=== PATIENT | male | born 1940 | race Caucasian/White ===

== ENCOUNTER 2018-11-15 05:13 | Emergency (ER) | payer OTHER, SELFPAY ==
--- NOTE | 2018-11-15 05:18 | ED.MALEGU ---
HPI - Male Genitourinary General Chief complaint: Urogenital-Male Stated complaint: urinary retention Time Seen by Provider: 11/15/18 05:17 Source: patient Mode of arrival: EMS Limitations: no limitations History of Present Illness HPI Narrative: 77-year-old [place]. Patient states that he has had 2 prior episodes of retention in the past however has never needed a Youssef catheter. Initially he stated that he has a history of prostatitis however when further questioning he stated that it was that his prostate was enlarged and not infected. He has seen Urology in the past. He stated that all of his prior episodes of urinary retention have resolved on their own he stated that his last episode of urination was last evening before bed. Woke up in the middle the night to go to the bathroom however could not. Started having abdominal pain. [place] was no Youssef on the eyelid to be placed. Was sent here by air evacuation. Received fentanyl prior to arrival. Review of Systems Constitutional Denies fatigue Gastrointestinal Gastrointestinal: Reports abdominal pain Genitourinary Comments: Urinary retention Endocrine Denies fatigue Hematologic/Lymphatic Denies easy bleeding and Denies easy bruising PFSH Medical History Enlarged prostate (Acute) Social History Smoking Status: Never smoker Social History Smoking Status: Never smoker Exam Initial Vital Signs Initial Vital Signs: Vital Signs Temperature 97.6 F 11/15/18 05:31 Pulse Rate 70 11/15/18 05:31 Respiratory Rate 18 11/15/18 05:31 Blood Pressure 121/62 11/15/18 05:31 Pulse Oximetry 99 11/15/18 05:31 Const General: cooperative, healthy appearing, comfortable, well developed and well groomed Orientation: alert, awake and oriented x3 Resp Effort & Inspection: normal respiratory effort Cardio Rate: regular rate Penis: normal penis Skin Lesions: no lesions Rashes: no rashes Neuro General: alert, awake and oriented x3 Extrem General: normal to inspection and capillary refill normal Course Orders Ordered: ED Orders 11/15/18 05:40 UA Complete [Urinalysis and Microscopic] Stat Vital Signs - 8 hr 11/15/18 05:31 11/15/18 06:17 Temperature 97.6 F Pulse Rate 70 76 Respiratory Rate 18 20 Blood Pressure 121/62 Blood Pressure [Left Arm] 112/60 Pulse Oximetry 99 98 MDM - Male Genitourinary Lab Data Lab Results 11/15/18 Range/Units 05:40 Urine Color Yellow Urine Appearance Clear Urine pH 6.5 (4.5-8.0) Ur Specific [place] 1.010 (1.000-1.035) Urine Protein Negative (Negative) Urine Glucose (UA) Negative (Negative) g/dL Urine Ketones Negative (NEGATIVE) Urine Occult Blood 2+ H (Negative) Urine Nitrate Negative (Negative) Urine Bilirubin Negative (NEGATIVE) Urine Urobilinogen 0.2 (0.2) E.U./dL Ur Leukocyte Esterase Negative (NEGATIVE) Urine RBC 1-5/hpf (0-5/HPF) Urine WBC None seen (0-5/HPF) Urine Bacteria None seen (None) Ur Culture Indicated? Cult not indicated MDM Narrative Medical decision making narrative: no signs of urinary tract infection. Youssef catheter is placed with return of approximately 1 L of urine. No indication for antibiotics. Patient was given care instructions with regard to his Youssef. He was instructed to contact his primary doctor for follow-up and to discuss the indications for referral to see Urology. Patient expressed understanding and agreement with plan. Discharge Plan Departure Patient Disposition: Home Clinical Impression: Acute retention of urine Instructions: How to Care for Your Youssef Catheter -- Male, DI for Urinary Retention in Men Activity Restrictions/Additional Instructions: I recommend that you contact your primary care doctor today for a follow-up to have Your Youssef catheter removed. Also recommend that you discussed the indications for referral to see Urology. return to the emergency department for any new or worsening symptoms Referrals: Ignacio Gomez MD [Primary Care Provider] -
[2018-11-15 05:31] VITALS: BP 121/62; PULSE 70; RESP 18; TEMP 36.4; O2SAT 99
[2018-11-15 06:06] LABS: Bacteria Urine None Seen; WBC Urine None Seen (0-5/HPF)
[2018-11-15 06:07] LABS: Appearance Urine UA CLEAR; Bilirubin Urine UA NEGATIVE (NEGATIVE); Color Urine UA YELLOW; Glucose Urine UA NEGATIVE (Negative); Ketones Urine UA NEGATIVE (NEGATIVE); Leukocyte Esterase Urine UA NEGATIVE (NEGATIVE); Nitrite Urine UA NEGATIVE (Negative); Occult Blood Urine UA 2+ (Negative); Protein Urine UA NEGATIVE (Negative); Urobilinogen Urine UA 0.2 E.U./dL (0.2); pH Urine UA 6.5 (4.5-8.0)
[2018-11-15 06:17] VITALS: BP 112/60; PULSE 76; RESP 20; O2SAT 98
[2018-11-15 06:25] LABS: Culture Indicated Urine Cult Not Indicated; RBC Urine 1-5/HPF (0-5/HPF)
--- NOTE | 2018-11-15 06:52 | PC.NURSE ---
HIs gibson bag was converted to leg bag,he verbalized understanding of care for it.I emptied 950 ml urine from his gibson.
== END 2018-11-15 06:52 | disposition home or self-care (01) ==
PROVIDERS: Emergency Provider Emergency Medicine; PCP Family Medicine
DX: R33.8 Other retention of urine (principal)
CPT/HCPCS: 51701; 81001; 99283

== ENCOUNTER 2019-05-10 19:00 | Emergency (ER) | payer OTHER, SELFPAY ==
[2019-05-10 19:29] VITALS: BP 182/85; PULSE 83; RESP 18; TEMP 36.9; O2SAT 97; BMI 23.3
--- NOTE | 2019-05-10 19:52 | ED_ITS ---
HPI - General Adult General Chief complaint: Abdominal Pain Stated complaint: LOTS OF PRESSURE NOT PEEING MUCH Time Seen by Provider: 05/10/19 19:44 Source: patient Mode of arrival: ambulatory Limitations: no limitations History of Present Illness HPI narrative: 78-year-old male here for evaluation of urinary frequency, urgency and lower abdominal discomfort. He states that it has been going on for the past several days. He has had history of urinary retention in the past and has had to have a Youssef catheter. He is under the care of her urologist. Is currently on medications for BPH. He denies any fevers. Related Data Previous Rx's Medication Instructions Recorded phenazopyridine [Pyridium] 100 mg PO TID PRN #6 tab 05/10/19 Allergies Allergy/AdvReac Type Severity Reaction Status Date / Time No Known Drug Allergies Allergy Verified 05/10/19 19:29 Review of Systems Constitutional Constitutional: Denies fever(s) ENT Ears, Nose, Mouth, and Throat: Denies vertigo and Denies dizziness Cardiovascular Cardiovascular: Denies chest pain and Denies dyspnea Respiratory Respiratory: Denies dyspnea Gastrointestinal Gastrointestinal: Reports abdominal pain, Reports constipation and Denies diarrhea Genitourinary Genitourinary: Denies hematuria, Reports difficulty urinating, Denies flank pa in, Reports urinary frequency, Reports urinary hesitancy, Denies urinary incontinence and Reports urinary urgency Musculoskeletal Musculoskeletal: Denies myalgias and Denies arthralgias Integumentary/Breasts Skin/Breast: Denies lesions and Denies rash Neurologic Neurologic: Denies vertigo and Denies dizziness Hematologic/Lymphatic Hematologic/Lymphatic: Denies easy bleeding and Denies easy bruising Allergic/Immunologic Allergic/Immunologic: Denies urticaria [facility] Medical History Enlarged prostate (Acute) Social History Smoking Status: Never smoker Social History Smoking Status: Never smoker Exam Initial Vital Signs Initial Vital Signs: Vital Signs Temperature 98.5 F 05/10/19 19:29 Pulse Rate 83 05/10/19 19:29 Respiratory Rate 18 05/10/19 19:29 Blood Pressure 182/85 H 05/10/19 19:29 Pulse Oximetry 97 05/10/19 19:29 Const General: cooperative, healthy appearing, comfortable, well developed, well groomed and No acute distress Orientation: alert, awake and oriented x3 HENMT Head: normal to inspection and normocephalic Resp Effort & Inspection: normal respiratory effort Auscultation: clear to auscultation bilaterally Cardio Rate: regular rate Rhythm: regular rhythm GI Inspection: non-distended Palpation: No firm and No tender Rectal Exam: normal sphincter tone, No fecal impaction and No hemorrhoids Other: Patient with a large prostate however not tender to palpation Skin Lesions: no lesions Rashes: no rashes Neuro General: alert and awake Cognition: normal cognition Speech: speech normal Extrem General: normal to inspection and capillary refill normal Psych Appearance: grossly normal and well kempt Course Orders Ordered: ED Orders 05/10/19 19:40 Urinalysis and Microscopic Stat Discontinued Medications Phenazopyridine HCl (Pyridium) 100 mg PO NOW ONE Stop: 05/10/19 21:02 Last Admin: 05/10/19 21:12 Dose: 100 mg Documented by: DEJAN Vital Signs Vital signs: Vital Signs - 8 hr 05/10/19 19:29 05/10/19 21:17 Temperature 98.5 F Pulse Rate 83 88 Respiratory Rate 18 18 Blood Pressure 182/85 H Blood Pressure [Left Arm] 160/78 H Pulse Oximetry 97 98 Medical Decision Making Lab Data Lab results reviewed: Yes I reviewed the patient's lab results. Labs: Lab Results 05/10/19 Range/Units 19:40 Urine Color Yellow Urine Appearance Clear Urine pH 5.5 (4.5-8.0) Ur Specific [place] 1.010 (1.000-1.035) Urine Protein Negative (Negative) Urine Glucose (UA) Negative (Negative) g/dL Urine Ketones Negative (NEGATIVE) Urine Occult Blood Negative (Negative) Urine Nitrate Negative (Negative) Urine Bilirubin Negative (NEGATIVE) Urine Urobilinogen 1.0 (0.2) E.U./dL Ur Leukocyte Esterase Negative (NEGATIVE) Urine RBC None seen (0-5/HPF) Urine WBC 0-1/hpf (0-5/HPF) Ur Squamous Epith Cells 0-1 /hpf (0-5/HPF) Urine Bacteria None seen (None) Ur Culture Indicated? Cult not indicated MDM Narrative Medical decision making narrative: Patient's urinalysis shows no signs of a UTI. He had a bladder scan with 40 cc of urine so I have low concern for urinary retention. He does have a very large prostate however does not tender to palpation and not boggy so I have a low suspicion for prostatitis. He does have symptoms consistent with a urinary tract infection however. No fevers. He does have a urologist that he follows. Will send him home with Pyridium to see if this does not help with his bladder spasms. Will hold on any antibiotics for now. Patient was given return precautions and follow-up instructions. He expressed understanding and agreement plan. Discharge Plan Departure Patient Disposition: Home Clinical Impression: Dysuria Discharge Date/Time: 05/10/19 21:30 Instructions: DI for Dysuria -- Adult Activity Restrictions/Additional Instructions: Recommend you take all of your medications as directed. On Monday if you're still having symptoms please contact your urologist for a follow-up. Return to the emergency department for any new symptoms Prescriptions: New phenazopyridine [Pyridium] 100 mg tablet 100 mg PO TID PRN (Reason: pain) Qty: 6 RF: 0 Referrals: Ignacio Gomez MD [Primary Care Provider] -
[2019-05-10 20:04] LABS: Bacteria Urine None Seen; RBC Urine None Seen (0-5/HPF)
[2019-05-10 20:10] LABS: Appearance Urine UA CLEAR; Bilirubin Urine UA NEGATIVE (NEGATIVE); Color Urine UA YELLOW; Glucose Urine UA NEGATIVE (Negative); Ketones Urine UA NEGATIVE (NEGATIVE); Leukocyte Esterase Urine UA NEGATIVE (NEGATIVE); Nitrite Urine UA NEGATIVE (Negative); Occult Blood Urine UA NEGATIVE (Negative); Protein Urine UA NEGATIVE (Negative); pH Urine UA 5.5 (4.5-8.0)
[2019-05-10 20:23] LABS: Culture Indicated Urine Cult Not Indicated; Squamous Epithelial Cell Urine 0-1 /HPF (0-5/HPF); WBC Urine 0-1/HPF (0-5/HPF)
[2019-05-10] MEDS: PHENAZOPYRIDINE 100 MG TABLET PO (21:12)
[2019-05-10 21:17] VITALS: BP 160/78; PULSE 88; RESP 18; O2SAT 98
== END 2019-05-10 21:30 | disposition home or self-care (01) ==
PROVIDERS: Emergency Provider Emergency Medicine; PCP Family Medicine
DX: R30.0 Dysuria (principal)
CPT/HCPCS: 51798; 81001; 99283

== ENCOUNTER 2019-08-16 10:00 | Day surgery (SDC) | payer OTHER, SELFPAY ==
--- NOTE | 2019-08-16 | PATH_ITS ---
[facility] Accession Number: [id number] . 01 Material submitted: . colon - CECAL POLYP . 02 Diagnosis: Cecum, Polyp, Biopsy: Tubular adenoma. MRV 08/19/2019 1007 Local . 02 Electronically signed: . Brianne Dalal MD, Pathologist NPI- [id number] . 01 Gross description: . CECAL POLYP: Received in formalin are 2 fragment(s) of lai, soft tissue measuring 0.3 x 0.2 x 0.2 cm to 0.5 x 0.4 x 0.3 cm submitted entirely in 1 cassette(s) /[facility] [place] 08/17/2019 0029 Local . 02 Pathologist provided ICD-10: D12.0 . 02 CPT . 756356 Performed at: 01 [facility] [address] [id number] MD Clinton Islas MD Phone: [phone] Performed at: 02 [facility] [address] [place], [place] [id number] MD Brianne Dalal MD Phone: [phone]
[2019-08-16] MEDS: SODIUM CHLORIDE 0.9% 1,000 ML 200 ML IV (10:31)
[2019-08-16 10:34] VITALS: BP 152/86; PULSE 98; RESP 20; TEMP 36.4; O2SAT 98; BMI 25.0
--- NOTE | 2019-08-16 10:42 | PM.HP.1 ---
History of Present Illness History of Present Illness Date Patient Seen: 08/16/19 Time Patient Seen: 10:43 Chief complaint: [id number] Narrative: This is a 78-year-old man who has never had a screening colonoscopy. He has had stool test before and never had 1 term positive. He has had worsening constipation recently and this has driven him to seek a colonoscopy. He denies any melena or hematochezia. ROS: Patient reports significant BPH with episodes of urine retention, chronic back pain, constipation, urinary frequency and urgency. Thirteen system review is otherwise negative other than as mentioned below and in HPI. PE: GENERAL: Well groomed and cooperative. Appears stated age. Answers questions promptly and appropriately. Vital signs noted. HENT: Normocephalic, atraumatic. Hearing intact. Oral mucosa is pink and moist. EYES: Conjunctiva pink, sclera white, no periorbital swelling. CARDIOVASCULAR: Regular rate. No pedal edema. RESPIRATORY: Non-tachypneic, breathing comfortably on room air. GASTROINTESTINAL: Abdomen soft and non-distended GENITALURINARY: No flank tenderness. MUSCULOSKELETAL: Equal tone and mass bilaterally. SKIN: Warm, dry, soft, appropriate color for ethnicity. No other lesions, rashes, or wounds. NEURO: Alert and Oriented X 3. No gross sensory deficits, or cognitive issues. PSYCH: Appropriate affect and mood. Patient History Medical History Enlarged prostate (Acute) Family & Social History Social History: household members spouse Tobacco & Substance use: Smoking Status Never smoker alcohol intake frequency a few times a month Substance Use Type marijuana Meds Home Medications and Allergies Home Medications Medication Instructions Recorded Confirmed Type phenazopyridine [Pyridium] 100 mg PO TID PRN #6 tab 05/10/19 Rx allopurinol 300 mg PO DAILY 08/16/19 08/16/19 History diazepam 5 mg PO BEDTIME PRN 08/16/19 08/16/19 History ibuprofen 400 mg PO Q8H PRN 08/16/19 08/16/19 History losartan 100 mg PO DAILY 08/16/19 08/16/19 History terazosin 10 mg PO DAILY 08/16/19 08/16/19 History Allergies Allergy/AdvReac Type Severity Reaction Status Date / Time shellfish derived Allergy Verified 08/16/19 10:39 Exam Vital Signs (past 8 hours): - 08/16/19 10:34 Temperature 97.5 F L Pulse Rate 98 H Respiratory Rate 20 Blood Pressure 152/86 H Pulse Oximetry 98 Oxygen Delivery Method Room Air Assessment & Plan Assessment and plan (1) At average risk for colon cancer: Current visit: Yes Status: Acute (2) Colon cancer screening: Current visit: Yes Status: Acute (3) Constipation: Current visit: Yes Status: Acute (4) BPH (benign prostatic hyperplasia): Current visit: Yes Status: Acute Assessment & Plan narrative: This is a 78-year-old man who is here for his 1st screening colonoscopy. Risks and benefits of colonoscopy including bleeding, perforation, need for additional procedures, risks of anesthesia were discussed with the patient. He desires to proceed with his colonoscopy procedure. Time Spent With Patient Time with patient: 15-24 minutes Quality VTE Deep Vein Thrombosis/Pulmonary Embolism Present on Admission: No
[2019-08-16] MEDS: fentaNYL 250 MCG/5 ML INJ IV (11:17)
--- NOTE | 2019-08-16 11:17 | PM.OP.ENDO ---
Operative Date/Time/Diagnoses Date of procedure: 08/16/19 Time of procedure: 11:17 Pre-op diagnosis: Average risk for colon cancer, constipation Post-op diagnosis: other (1cm cecal polyp ) Procedure & Clinicians Study performed: colonoscopy with polypectomy using hot snare Same procedure as scheduled: Yes Indications: average risk for colon cancer, never had screening colonoscopy Surgeon: Kera Turner Procedure Notes SCOAP/Timeout: Performed Procedure in detail: The patient was brought to the room and placed in left lateral decubitus position with all bony prominences padded. A time-out was performed and then the patient was given procedural sedation starting with [4] mg of Versed and [100] mcg of fentanyl. A total of 6 mg of Versed and 250 micro rooms of fentanyl were used for the procedure. Vitals were monitored throughout the procedure and remained stable. Once adequately sedated the procedure was begun. A rectal exam was performed revealing a large prostate. The colonoscope was then introduced to the rectum and advanced to the cecum in the usual fashion. []The cecum was identified by the appendiceal orifice, the mucosal tri-fold, and the ileocecal valve. A 1 cm polyp was found in the cecum. It was completely removed with hot snare. The scope was then retracted while rotating side to side and examining each mucosal fold. [No further abnormalities were seen.] At the conclusion of the procedure retroflexion was performed and [small grade 1-2 internal hemorrhoids without stigmata of bleeding were seen, as well as an enlarged prostate]. The scope was then withdrawn from the rectum the procedure was concluded. The patient tolerated the procedure well and was transferred to the PACU in stable condition. Scope withdrawal time: 17 Sedation minutes: 29 Findings: polyp Specimen(s): other (1 cm cecal polyp) Complications: none Impression: 1 cm cecal polyp, large prostate, otherwise normal Post-procedure Recommendations: Colonscopy in 5 years (Depending on pathology results) Follow up: as needed Disposition: PACU
[2019-08-16] MEDS: MIDAZOLAM 5 MG/5 ML VIAL IV (11:18)
[2019-08-16 11:21] VITALS: BP 130/64; PULSE 61; RESP 17; O2SAT 98
[2019-08-16] MEDS: MIDAZOLAM 2 MG/2 ML VIAL IV (11:22)
[2019-08-16 11:27] VITALS: BP 121/69; PULSE 58; RESP 14; TEMP 36.3; O2SAT 98
[2019-08-16 11:31] VITALS: BP 134/75; PULSE 63; RESP 14; O2SAT 97
[2019-08-16 11:45] VITALS: BP 136/71; PULSE 62; RESP 20; TEMP 36.9; O2SAT 98
== END 2019-08-16 11:55 | disposition home or self-care (01) ==
PROVIDERS: PCP Family Medicine; Visit Provider Surgery
PROC: 0DJD8ZZ Inspection of Lower Intestinal Tract, Via Natural or Artificial Opening Endoscopic (ICD-10-PCS; CPT 45378; principal; 2019-08-16 10:00)
DX: D12.0 Benign neoplasm of cecum (principal); N40.1 Benign prostatic hyperplasia with lower urinary tract symptoms; R33.8 Other retention of urine; R35.0 Frequency of micturition; R39.15 Urgency of urination; M54.5 Low back pain
CPT/HCPCS: 45380; 99152; 99153; J2250; J3010

== ENCOUNTER → 2021-04-01 10:39 | Outpatient (CLI) | payer BC, SELFPAY ==
[2021-04-01 19:37] LABS: Add Manual Diff / Slide Review NO; Basophils Absolute Auto 0 /uL (0-100); Basophils Percent Auto 0.5 % (0-2); Eosinophils Absolute Auto 100 /uL (0-450); Hematocrit 42.1 % (41-53); Hemoglobin 14.2 g/dL (13.5-17.5); Lymphocytes Absolute Auto 2000 /uL (1100-4500); Mean Corpuscular HGB Conc 33.6 % (30-36); Mean Corpuscular Hemoglobin 32.5 PG (26-34); Mean Corpuscular Volume 96.6 fL (80-100); Monocytes Absolute Auto 400 /uL (0-900); Monocytes Percent Auto 7.6 % (3-14); Neutrophils Absolute Auto 3300 /uL (1500-7000); Neutrophils Percent Auto 56.9 % (50-75); Platelet Count 156 X10^3/uL (150-400); Red Blood Cell Count 4.36 X10^6/uL (4.5-5.9); Red Cell Distribution Width 14.9 % (11.6-14.8); White Blood Cell Count 5.8 X10^3/uL (4.5-11.0)
[2021-04-01 19:54] LABS: Alanine Aminotransferase 20 IU/L (<50); Albumin 3.6 g/dL (3.5-5.0); Albumin Globulin Ratio 1.3 (1.0-2.8); Alkaline Phosphatase 69 U/L (38-126); Aspartate Aminotransferase 29 IU/L (17-59); BUN Creatinine Ratio 20.3 (6-22); Blood Urea Nitrogen 27 mg/dL (9-20); Carbon Dioxide 27 mmol/L (22-32); Chloride 106 mmol/L (98-107); Cholesterol 199 mg/dL (140-199); Globulin 2.8 g/dL (1.7-4.1); Glucose 98 mg/dL (80-110); HDL Cholesterol 57 mg/dL (40-60); HEMOLYSIS < 15 (0-50); LDL Cholesterol Calculated 126 mg/dL (<100); Potassium 4.8 mmol/L (3.4-5.1); Sodium 137 mmol/L (137-145); Total Protein 6.4 g/dL (6.3-8.2); Triglycerides 79 mg/dL (35-150)
[2021-04-01 20:16] LABS: Prostate Specific Antigen 0.727 ng/mL (0.10-4.00)
== END ==
PROVIDERS: PCP Physician Assistant; Visit Provider Family Medicine
DX: I10 Essential (primary) hypertension (principal); N40.0 Benign prostatic hyperplasia without lower urinary tract symptoms
CPT/HCPCS: 80053; 80061; 84153; 85025

== ENCOUNTER 2021-08-09 14:00 | Emergency (ER) | payer BC, MEDICARE, SELFPAY ==
[2021-08-09] VITALS (19 sets, daily range): BP systolic 150–217; BP diastolic 67–96; PULSE 57–121; RESP 18–38; TEMP 36.9–37.7; O2SAT 91–98
--- NOTE | 2021-08-09 14:21 | DI.RAD.S_ITS ---
PROCEDURE: XR CHEST 1V INDICATIONS: suspected sepsis TECHNIQUE: One view of the chest was acquired. COMPARISON: None. FINDINGS: Surgical changes and devices: None. Lungs and pleura: Right lower lung zone density, which may reflect atelectasis and/or pneumonic infiltrate. The left lung is well aerated. No pneumothorax. Mediastinum: Mediastinal contours appear normal. Heart size is normal. Bones and chest wall: No suspicious bony lesions. Overlying soft tissues appear unremarkable. IMPRESSION: Right lower lung zone density, which may reflect atelectasis and/or pneumonic infiltrate. Dictated by: Everette Astorga M.D. on 08/09/2021 at 15:14 Approved by: Everette Astorga M.D. on 08/09/2021 at 15:15
[2021-08-09 14:55] LABS: Add Manual Diff / Slide Review NO; Basophils Absolute Auto 0 /uL (0-100); Basophils Percent Auto 0.4 % (0-2); Eosinophils Absolute Auto 0 /uL (0-450); Eosinophils Percent Auto 0.6 % (2-4); Hematocrit 40.6 % (41-53); Hemoglobin 13.7 g/dL (13.5-17.5); Lymphocytes Absolute Auto 900 /uL (1100-4500); Lymphocytes Percent Auto 10.5 % (25-40); Mean Corpuscular HGB Conc 33.8 % (30-36); Mean Corpuscular Hemoglobin 32.2 PG (26-34); Mean Corpuscular Volume 95.4 fL (80-100); Monocytes Absolute Auto 900 /uL (0-900); Monocytes Percent Auto 10.4 % (3-14); Neutrophils Absolute Auto 6800 /uL (1500-7000); Neutrophils Percent Auto 78.1 % (50-75); Platelet Count 170 X10^3/uL (150-400); Red Blood Cell Count 4.26 X10^6/uL (4.5-5.9); Red Cell Distribution Width 14.1 % (11.6-14.8); White Blood Cell Count 8.7 X10^3/uL (4.5-11.0)
[2021-08-09 15:16] LABS: Lactate (Lactic Acid) 1.4 mmol/L (0.7-2.1)
--- NOTE | 2021-08-09 15:16 | ED.GENADULT ---
HPI - General Adult <Martell Batista DO - Last Filed: 08/10/21 07:00> General Chief complaint: Fever Stated complaint: Feve, SOB, Lower left back pain Time Seen by Provider: 08/09/21 14:23 Source: patient Mode of arrival: Ambulatory History of Present Illness HPI narrative: Patient is a 80-year-old male here for evaluation approximately 3 days of a fever and right lower back discomfort. He states that the fever started 3 days ago. He is unsure the exact cause. Has been taking some medication at home for it. No cough. No urinary symptoms. No change in bowel habits. No skin changes. No sore throat although he is having some congestion. No problems breathing. Approximately the same time he started having pain in his right lower back. He states that this pain does seem to come and go. Does not get worse with touching it but does get worse with position. He has never had a kidney stone before. Related Data Home Medications Medication Instructions Recorded Confirmed ibuprofen 200 mg tablet 400 mg PO Q8H PRN 08/16/19 04/06/21 allopurinol 300 mg tablet 300 mg PO DAILY 03/30/21 04/06/21 Previous Rx's Medication Instructions Recorded diazepam 5 mg tablet (Valium) See Rx Instructions PO BEDTIME PRN 04/06/21 #10 tab losartan 100 mg tablet 100 mg PO DAILY #90 tab 04/21/21 clonidine HCl 0.1 mg tablet See Rx Instructions .ROUTE 07/13/21 .COMPLEX #45 tab azithromycin 250 mg tablet 250 mg PO DAILY 4 Days tab 08/09/21 (Zithromax) Allergies Allergy/AdvReac Type Severity Reaction Status Date / Time shellfish derived Allergy Verified 04/06/21 14:04 Review of Systems <Martell Batista DO - Last Filed: 08/10/21 07:00> Constitutional Constitutional: Reports fever(s) and Denies headache(s) ENT Ears, Nose, Mouth, and Throat: Denies headache(s) Cardiovascular Cardiovascular: Reports system reviewed and no additional complaints, except as documented Respiratory Respiratory: Reports system reviewed and no additional complaints, except as documented Gastrointestinal Gastrointestinal: Reports system reviewed and no additional complaints, except as documented Genitourinary Genitourinary: Reports system reviewed and no additional complaints, except as documented Musculoskeletal Musculoskeletal: Reports as per HPI Integumentary/Breasts Skin/Breast: Reports system reviewed and no additional complaints, except as documented Neurologic Neurologic: Reports system reviewed and no additional complaints, except as documented and Denies headache(s) Hematologic/Lymphatic On Anticoagulants: No Allergic/Immunologic Allergic/Immunologic: Reports system reviewed and no additional complaints, except as documented Patient History <Martell Batista DO - Last Filed: 08/10/21 07:00> Medical History (Updated 08/09/21 @ 20:07 by Ignacio Ba MD) Enlarged prostate Social History household members: spouse Smoking Status: Never smoker Smoking Status: Never smoker alcohol intake frequency: a few times a month Substance Use Type: marijuana Exam <Martell Batista DO - Last Filed: 08/10/21 07:00> Initial Vital Signs Initial Vital Signs: Vital Signs Temperature 98.4 F 08/09/21 14:13 Pulse Rate 121 H 08/09/21 14:13 Respiratory Rate 18 08/09/21 14:13 Blood Pressure 217/96 H 08/09/21 14:13 Pulse Oximetry 98 08/09/21 14:13 Const General: cooperative, comfortable and well developed Limitations: mental status not altered HENMT Head: normal to inspection and normocephalic Resp Effort & Inspection: normal respiratory effort Auscultation: clear to auscultation bilaterally Cardio Rate: regular rate Rhythm: regular rhythm GI Inspection: normal to inspection and non-distended Palpation: soft and No tender Back/Spine/Pelvis Other: Patient does have some fullness in his right paraspinal regions lower back. He has 3 distinct areas of fullness that feel very much like lipomas. No overlying skin changes. Is to seem to be the area where he is having discomfort. Skin Lesions: no lesions Rashes: no rashes Neuro General: patient alert, patient awake, patient oriented x3 and moves all extremities Cognition: normal cognition Speech: speech normal Extrem General: normal to inspection and capillary refill normal Psych Appearance: grossly normal and well kempt <Ignacio Ba MD - Last Filed: 08/10/21 01:33> Initial Vital Signs Initial Vital Signs: Vital Signs Temperature 98.4 F 08/09/21 14:13 Pulse Rate 121 H 08/09/21 14:13 Respiratory Rate 18 08/09/21 14:13 Blood Pressure 217/96 H 08/09/21 14:13 Pulse Oximetry 98 08/09/21 14:13 Course <Martell Batista DO - Last Filed: 08/10/21 07:00> Orders Ordered: Discontinued Medications Diphenhydramine HCl (Diphenhydramine 50 Mg/Ml Vial) 25 mg IV NOW ONE Stop: 08/09/21 16:16 Last Admin: 08/09/21 16:21 Dose: 25 mg Documented by: JEFERSON Sodium Chloride (Normal Saline 0.9%) 1,000 mls @ 1,000 mls/hr IV BOLUS ONE Stop: 08/09/21 15:20 Last Infusion: 08/09/21 19:17 Dose: 0 mls/hr Documented by: Admin: 08/09/21 15:48 Dose: 1,000 mls/hr Documented by: JEFERSON Azithromycin 500 mg/ Dextrose 250 mls @ 250 mls/hr IV NOW ONE Stop: 08/09/21 17:21 Last Infusion: 08/09/21 19:27 Dose: 0 mls/hr Documented by: Infusion: 08/09/21 18:00 Dose: 250 mls/hr Documented by: Infusion: 08/09/21 17:44 Dose: 0 mls/hr Documented by: Admin: 08/09/21 17:44 Dose: 250 mls/hr Documented by: JEFERSON Ibuprofen (Ibuprofen 400 Mg Tablet) 800 mg PO NOW ONE Stop: 08/09/21 15:44 Last Admin: 08/09/21 15:48 Dose: 800 mg Documented by: JEFERSON Methylprednisolone (Methylprednisolone 125 Mg/2 Ml Vial) 125 mg IV NOW ONE Stop: 08/09/21 16:16 Last Admin: 08/09/21 16:21 Dose: 125 mg Documented by: JEFERSON Vital Signs Vital signs: Vital Signs - 8 hr 08/09/21 18:00 08/09/21 18:30 08/09/21 19:00 Pulse Rate 57 L 66 71 Respiratory Rate 24 38 H 27 H Blood Pressure Pulse Oximetry 96 96 95 08/09/21 19:02 08/09/21 19:30 08/09/21 20:00 Pulse Rate 62 59 L 60 Respiratory Rate 21 21 18 Blood Pressure 156/70 H 151/67 H 163/74 H Pulse Oximetry 95 96 95 <Ignacio Ba MD - Last Filed: 08/10/21 01:33> Course Course Narrative: 7:[address] Batista, MRI pending likely hemangioma. Stable for discharge home. Had Zithromax 1st dose here. Needs continuation antibiotics for the next 4 days with Zithromax. Orders Ordered: Discontinued Medications Diphenhydramine HCl (Diphenhydramine 50 Mg/Ml Vial) 25 mg IV NOW ONE Stop: 08/09/21 16:16 Last Admin: 08/09/21 16:21 Dose: 25 mg Documented by: JEFERSON Sodium Chloride (Normal Saline 0.9%) 1,000 mls @ 1,000 mls/hr IV BOLUS ONE Stop: 08/09/21 15:20 Last Infusion: 08/09/21 19:17 Dose: 0 mls/hr Documented by: Admin: 08/09/21 15:48 Dose: 1,000 mls/hr Documented by: JEFERSON Azithromycin 500 mg/ Dextrose 250 mls @ 250 mls/hr IV NOW ONE Stop: 08/09/21 17:21 Last Infusion: 08/09/21 19:27 Dose: 0 mls/hr Documented by: Infusion: 08/09/21 18:00 Dose: 250 mls/hr Documented by: Infusion: 08/09/21 17:44 Dose: 0 mls/hr Documented by: Admin: 08/09/21 17:44 Dose: 250 mls/hr Documented by: JEFERSON Ibuprofen (Ibuprofen 400 Mg Tablet) 800 mg PO NOW ONE Stop: 08/09/21 15:44 Last Admin: 08/09/21 15:48 Dose: 800 mg Documented by: JEFERSON Methylprednisolone (Methylprednisolone 125 Mg/2 Ml Vial) 125 mg IV NOW ONE Stop: 08/09/21 16:16 Last Admin: 08/09/21 16:21 Dose: 125 mg Documented by: JEFERSON Reevaluation(s) Reevaluation #1: Spoke with patient and family regarding MRI results. Blood pressure has improved. Patient not toxic. Reviewed MRI likely hemangioma and needs follow-up with primary care. They agree with treatment plan Time: 20:05 Vital Signs Vital signs: Vital Signs - 8 hr 08/09/21 18:00 08/09/21 18:30 08/09/21 19:00 Pulse Rate 57 L 66 71 Respiratory Rate 24 38 H 27 H Blood Pressure Pulse Oximetry 96 96 95 08/09/21 19:02 08/09/21 19:30 08/09/21 20:00 Pulse Rate 62 59 L 60 Respiratory Rate 21 21 18 Blood Pressure 156/70 H 151/67 H 163/74 H Pulse Oximetry 95 96 95 Medical Decision Making <Martell BatistaDO - Last Filed: 08/10/21 07:00> Medical Records Medical records reviewed: Yes I reviewed the patient's medical records. Lab Data Lab results reviewed: Yes I reviewed the patient's lab results. Result diagrams: 08/09/21 14:48 08/09/21 14:48 Labs: Lab Results 08/09/21 08/09/21 08/09/21 Range/Units 14:24 14:48 14:48 WBC 8.7 (4.5-11.0) X10^3/uL RBC 4.26 L (4.5-5.9) X10^6/uL Hgb 13.7 (13.5-17.5) g/dL Hct 40.6 L (41-53) % MCV 95.4 (80-100) fL MCH 32.2 (26-34) PG MCHC 33.8 (30-36) % RDW 14.1 (11.6-14.8) % Plt Count 170 (150-400) X10^3/uL Neut % (Auto) 78.1 H (50-75) % Lymph % (Auto) 10.5 L (25-40) % [place] % (Auto) 10.4 (3-14) % Eos % (Auto) 0.6 L (2-4) % Baso % (Auto) 0.4 (0-2) % Neut # (Auto) 6800 (5268-1889) /uL Lymph # (Auto) 900 L (3766-8967) /uL [place] # (Auto) 900 (0-900) /uL Eos # (Auto) 0 (0-450) /uL Baso # (Auto) 0 (0-100) /uL Sodium 141 (137-145) mmol/L Potassium 4.3 (3.4-5.1) mmol/L Chloride 107 (98-107) mmol/L Carbon Dioxide 26 (22-32) mmol/L BUN 21 H (9-20) mg/dL Creatinine 1.22 (0.66-1.25) mg/dL Estimated GFR 57.4 L (>60) mL/min BUN/Creatinine Ratio 17.2 (6-22) Glucose 112 H (80-110) mg/dL Lactate (0.7-2.1) mmol/L Calcium 11.6 H (8.4-10.2) mg/dL Total Bilirubin 1.5 H (0.2-1.3) mg/dL AST 57 (17-59) IU/L ALT 62 H (<50) IU/L Alkaline Phosphatase 118 (38-126) U/L Total Protein 7.5 (6.3-8.2) g/dL Albumin 4.0 (3.5-5.0) g/dL Globulin 3.5 (1.7-4.1) g/dL Albumin/Globulin Ratio 1.1 (1.0-2.8) Lipase 47 (23-300) U/L Procalcitonin 0.20 (<0.5) ng/mL SARS-CoV-2 (PCR) Negative (Negative) 08/09/21 Range/Units 14:48 WBC (4.5-11.0) X10^3/uL RBC (4.5-5.9) X10^6/uL Hgb (13.5-17.5) g/dL Hct (41-53) % MCV (80-100) fL MCH (26-34) PG MCHC (30-36) % RDW (11.6-14.8) % Plt Count (150-400) X10^3/uL Neut % (Auto) (50-75) % Lymph % (Auto) (25-40) % [place] % (Auto) (3-14) % Eos % (Auto) (2-4) % Baso % (Auto) (0-2) % Neut # (Auto) (4963-8679) /uL Lymph # (Auto) (8785-2819) /uL [place] # (Auto) (0-900) /uL Eos # (Auto) (0-450) /uL Baso # (Auto) (0-100) /uL Sodium (137-145) mmol/L Potassium (3.4-5.1) mmol/L Chloride (98-107) mmol/L Carbon Dioxide (22-32) mmol/L BUN (9-20) mg/dL Creatinine (0.66-1.25) mg/dL Estimated GFR (>60) mL/min BUN/Creatinine Ratio (6-22) Glucose (80-110) mg/dL Lactate 1.4 (0.7-2.1) mmol/L Calcium (8.4-10.2) mg/dL Total Bilirubin (0.2-1.3) mg/dL AST (17-59) IU/L ALT (<50) IU/L Alkaline Phosphatase (38-126) U/L Total Protein (6.3-8.2) g/dL Albumin (3.5-5.0) g/dL Globulin (1.7-4.1) g/dL Albumin/Globulin Ratio (1.0-2.8) Lipase (23-300) U/L Procalcitonin (<0.5) ng/mL SARS-CoV-2 (PCR) (Negative) Urine Dip Bedside Urine Glucose Negative Bedside Urine Bilirubin - Negative Bedside Urine Ketone - Negative Urine Specific [place] 1.015 Bedside Urine Occult Blood - Negative Bedside Urine pH 6.0 Bedside Urine Protein + 30 Bedside Urine Urobilinogen - Negative Bedside Urine Nitrite - Negative Bedside Urine Leukocytes - Negative Esterase Point of care testing: Urine Dip Bedside Urine Glucose Negative Bedside Urine Bilirubin - Negative Bedside Urine Ketone - Negative Urine Specific [place] 1.015 Bedside Urine Occult Blood - Negative Bedside Urine pH 6.0 Bedside Urine Protein + 30 Bedside Urine Urobilinogen - Negative Bedside Urine Nitrite - Negative Bedside Urine Leukocytes - Negative Esterase Imaging Data Chest x-ray: Radiologist's Impression: Close Chest X-Ray (Signed) Everette Astorga - 08/09/21 Telemetry Strips 08/16/19 Launch?[address] [address] XRay Report Signed Patient: Chauncey Martinez MR#: [id number] : 1940 Acct:[id number] Age/Sex: 80 / M Date of Service: 08/09/21 Loc: ED Accession Number: [id number] ?? Procedure: XR chest 1V Ordering Provider: Martell Batista D.O. PROCEDURE:? XR CHEST 1V ? INDICATIONS:? suspected sepsis ? TECHNIQUE:? One view of the chest was acquired.? ? COMPARISON:? None. ? FINDINGS:? ? Surgical changes and devices:? None.? ? Lungs and pleura:? Right lower lung zone density, which may reflect atelectasis and/or pneumonic infiltrate.? The left lung is well aerated.? No pneumothorax.? ? Mediastinum:? Mediastinal contours appear normal.? Heart size is normal.? ? Bones and chest wall:? No suspicious bony lesions.? Overlying soft tissues appear unremarkable.? ? IMPRESSION:? Right lower lung zone density, which may reflect atelectasis and/or pneumonic infiltrate.? ? ? Dictated by: Everette Astorga M.D. on 08/09/2021 at 15:14 ? ? Approved by: Everette Astorga M.D. on 08/09/2021 at 15:15?? CT scan - abdomen/pelvis: Radiologist's Impression: [place] [address] CT Scan Report Signed Patient: Chauncey Martinez MR#: [id number] : 1940 Acct:[id number] Age/Sex: 80 / M Date of Service: 08/09/21 Loc: ED Accession Number: [id number] ?? Procedure: CT abdomen pelvis w con Ordering Provider: Martell Batista D.O. PROCEDURE:? CT ABDOMEN PELVIS W CON ? INDICATIONS:? Right-sided flank pain with fever and leukocytosis ? TECHNIQUE:? After the administration of IV contrast, axial sections were acquired from the lung bases to the pubic symphysis.? Coronal and sagittal reformats were performed.? For radiation dose reduction, the following was used:? automated exposure control, adjustment of mA and/or kV according to patient size. ? COMPARISON:? None. ? FINDINGS:? Image quality:? Excellent.? ? Lung bases:? There is a small right pleural effusion.? There are confluent ground-glass opacities with mild consolidation inferiorly in the right lower lobe.? Linear areas of atelectasis are also demonstrated in the lung bases.? ? Heart:? Heart is normal in size. ? ? ABDOMEN: Liver:? Anteriorly within segment 2 of the left hepatic lobe, there is a peripherally enhancing lobulated mass measuring approximately 4.9 x 4.3 cm.? There is das discontinuous nodular peripheral enhancement.? Posteriorly within segment 7 of the right hepatic lobe, there is also an oval heterogeneous hypoattenuating mass lesion measuring approximately 2.7 x 2.5 cm with heterogeneous internal enhancement with areas of peripheral nodularity also noted.? The findings are suggestive of cavernous hemangiomas but are incompletely characterized on the current study. Gallbladder:? Within normal limits without gallstones.? ? Biliary ducts:? No biliary ductal dilatation.? ? Pancreas:? Unremarkable.? ? Spleen:? Normal in size.? ? Adrenal Glands:? No adrenal nodules.? ? Kidneys and Ureters:? No hydronephrosis.? There is asymmetric moderate atrophy of the right kidney.? A small nonobstructing 0.2 cm stone is present within the right kidney.? ? Stomach and Bowel:? Stomach, small bowel loops, and colon are normal in caliber and wall thickness.? The appendix is normal in appearance.? Peritoneum:? No abnormal intraperitoneal fluid.? No free air.? ? Ventral Wall: ? No hernia.? Abdominal Nodes:? No retroperitoneal or mesenteric adenopathy by size criteria.? Vessels:? Aorta and inferior vena cava are normal in size.? ? PELVIS: Pelvic Organs:? Unremarkable.? ? Bladder:? Unremarkable.? ? Pelvic Nodes: No enlarged lymph nodes.? Miscellaneous: No inguinal hernias are seen. ? ? ? Bones:? Visualized osseous structures demonstrate no suspicious focal lesions. ? ? IMPRESSION:? ? 1. Confluent ground-glass opacities with consolidation inferiorly in the right lower lobe consistent with pneumonia.? There is an associated small right parapneumonic effusion.? Consider short-term follow-up to demonstrate resolution if clinically indicated. ? 2. Demonstration of 2 hepatic mass lesions with imaging findings suggestive of cavernous hemangiomas but which are incompletely characterized on the current study.? The differential includes neoplasms as well as possible fluid collections such as abscesses.? Recommend a follow-up liver protocol MRI or CT for further evaluation. ? 3. Right nephrolithiasis without obstructive uropathy.? ? ? Dictated by: Clinton Brady M.D. on 08/09/2021 at 16:44 ? ? Approved by: Clinton Brady M.D. on 08/09/2021 at 16:52?? ECG Data Attestation: I personally reviewed and interpreted this ECG as follows: Interpretation: Sinus rhythm Ventricular rate 95 LVH Normal axis Normal QRS Normal QTC Nonspecific ST T wave changes MDM Narrative Medical decision making narrative: Patient was febrile however no leukocytosis. Chest x-ray does have some concerning findings for pneumonia however he has not had a cough. The discomfort he is having does seem to be somewhat lower than what I would expect for his right lower lung to be causing his back discomfort. The mass is in his back feel very much like lipomas. There is no signs of any cellulitis. The back discomfort and also the fever started approximately the same time. His CT scan was ordered for concern of potential deeper infection given his presentation. There is no signs of pyelonephritis. Low suspicion for gallstones. The CT scan as even more findings consistent with pneumonia which very well could be causing his symptoms however there were also findings in his liver that are most likely hemangiomas but there was also concern about abscesses. An MRI liver protocol was ordered for further evaluation of this. He was given a dose of azithromycin to start treatment for pneumonia. Anticipate discharge home if his MRI is unremarkable. Care turned over to Dr. Ba head changes shift to follow-up on MRI and anticipated disposition. <Ignacio Ba MD - Last Filed: 08/10/21 01:33> Differential Diagnosis Differential Diagnosis: Hemangioma/community-acquired pneumonia Lab Data Labs: Lab Results 08/09/21 08/09/21 08/09/21 Range/Units 14:24 14:48 14:48 WBC 8.7 (4.5-11.0) X10^3/uL RBC 4.26 L (4.5-5.9) X10^6/uL Hgb 13.7 (13.5-17.5) g/dL Hct 40.6 L (41-53) % MCV 95.4 (80-100) fL MCH 32.2 (26-34) PG MCHC 33.8 (30-36) % RDW 14.1 (11.6-14.8) % Plt Count 170 (150-400) X10^3/uL Neut % (Auto) 78.1 H (50-75) % Lymph % (Auto) 10.5 L (25-40) % [place] % (Auto) 10.4 (3-14) % Eos % (Auto) 0.6 L (2-4) % Baso % (Auto) 0.4 (0-2) % Neut # (Auto) 6800 (9447-7221) /uL Lymph # (Auto) 900 L (7701-6478) /uL [place] # (Auto) 900 (0-900) /uL Eos # (Auto) 0 (0-450) /uL Baso # (Auto) 0 (0-100) /uL Sodium 141 (137-145) mmol/L Potassium 4.3 (3.4-5.1) mmol/L Chloride 107 (98-107) mmol/L Carbon Dioxide 26 (22-32) mmol/L BUN 21 H (9-20) mg/dL Creatinine 1.22 (0.66-1.25) mg/dL Estimated GFR 57.4 L (>60) mL/min BUN/Creatinine Ratio 17.2 (6-22) Glucose 112 H (80-110) mg/dL Lactate (0.7-2.1) mmol/L Calcium 11.6 H (8.4-10.2) mg/dL Total Bilirubin 1.5 H (0.2-1.3) mg/dL AST 57 (17-59) IU/L ALT 62 H (<50) IU/L Alkaline Phosphatase 118 (38-126) U/L Total Protein 7.5 (6.3-8.2) g/dL Albumin 4.0 (3.5-5.0) g/dL Globulin 3.5 (1.7-4.1) g/dL Albumin/Globulin Ratio 1.1 (1.0-2.8) Lipase 47 (23-300) U/L Procalcitonin 0.20 (<0.5) ng/mL SARS-CoV-2 (PCR) Negative (Negative) 08/09/21 Range/Units 14:48 WBC (4.5-11.0) X10^3/uL RBC (4.5-5.9) X10^6/uL Hgb (13.5-17.5) g/dL Hct (41-53) % MCV (80-100) fL MCH (26-34) PG MCHC (30-36) % RDW (11.6-14.8) % Plt Count (150-400) X10^3/uL Neut % (Auto) (50-75) % Lymph % (Auto) (25-40) % [place] % (Auto) (3-14) % Eos % (Auto) (2-4) % Baso % (Auto) (0-2) % Neut # (Auto) (7405-5171) /uL Lymph # (Auto) (4519-3348) /uL [place] # (Auto) (0-900) /uL Eos # (Auto) (0-450) /uL Baso # (Auto) (0-100) /uL Sodium (137-145) mmol/L Potassium (3.4-5.1) mmol/L Chloride (98-107) mmol/L Carbon Dioxide (22-32) mmol/L BUN (9-20) mg/dL Creatinine (0.66-1.25) mg/dL Estimated GFR (>60) mL/min BUN/Creatinine Ratio (6-22) Glucose (80-110) mg/dL Lactate 1.4 (0.7-2.1) mmol/L Calcium (8.4-10.2) mg/dL Total Bilirubin (0.2-1.3) mg/dL AST (17-59) IU/L ALT (<50) IU/L Alkaline Phosphatase (38-126) U/L Total Protein (6.3-8.2) g/dL Albumin (3.5-5.0) g/dL Globulin (1.7-4.1) g/dL Albumin/Globulin Ratio (1.0-2.8) Lipase (23-300) U/L Procalcitonin (<0.5) ng/mL SARS-CoV-2 (PCR) (Negative) Urine Dip Bedside Urine Glucose Negative Bedside Urine Bilirubin - Negative Bedside Urine Ketone - Negative Urine Specific [place] 1.015 Bedside Urine Occult Blood - Negative Bedside Urine pH 6.0 Bedside Urine Protein + 30 Bedside Urine Urobilinogen - Negative Bedside Urine Nitrite - Negative Bedside Urine Leukocytes - Negative Esterase Point of care testing: Urine Dip Bedside Urine Glucose Negative Bedside Urine Bilirubin - Negative Bedside Urine Ketone - Negative Urine Specific [place] 1.015 Bedside Urine Occult Blood - Negative Bedside Urine pH 6.0 Bedside Urine Protein + 30 Bedside Urine Urobilinogen - Negative Bedside Urine Nitrite - Negative Bedside Urine Leukocytes - Negative Esterase Imaging Data MRI abdomen: Radiologist's Impression: [address] [address] Magnetic Resonance Report Signed Patient: Chauncey Martinez MR#: [id number] : 1940 Acct:[id number] Age/Sex: 80 / M Date of Service: 08/09/21 Loc: ED Accession Number: [id number] ?? Procedure: MR abdomen wo/w con Ordering Provider: Martell Batista D.O. PROCEDURE:? MR ABDOMEN WO/W CON ? INDICATIONS:? would like liver protocol MRI to evaluate for abscesses ? TECHNIQUE:? Coronal HASTE, axial 2D FLASH in- and [id number]; axial breath-hold T2 FSE.? Dynamic axial VIBE during the administration of contrast; post-contrast coronal VIBE or 2D FLASH with fat saturation from the hepatic dome to the iliac crests.? Optional diffusion weighted imaging and ADC may be performed.? ? COMPARISON:? [facility], CT, CT ABDOMEN PELVIS W CON, 08/09/2021, 16:38. ? FINDINGS:? Image quality:? Some images are degraded by motion artifact.? ? Lung bases:? Small right pleural effusion.? Heart size is normal.? ? Solid organs:? Liver:? Redemonstrated masses in segment 2, measuring approximately 5.5 x 3.5 cm, and segment 7, measuring 2.5 x 2.5 cm , which demonstrate peripheral nodular enhancement and exhibit restricted diffusion. ? Gallbladder demonstrates no acute abnormality.? Biliary system is non dilated.? ? Pancreas is normal in morphology.? ? Spleen is normal in size and enhancement.? ? No adrenal nodules.? ? The kidneys demonstrate symmetric enhancement without hydronephrosis.? The right kidney is atrophic.? Parapelvic T2 hyperintense lesions in the left kidney, likely representing cysts. ? Nodes and vessels:? No retroperitoneal or mesenteric adenopathy by size criteria.? Aorta and inferior vena cava are normal in size.? ? Bowel and peritoneum:? Unenhanced bowel loops are normal in caliber.? No free fluid.? ? Bones:? Bone marrow is normal in overall signal.? ? ? IMPRESSION:? 1. Redemonstrated hepatic masses as detailed above, favored to represent hemangiomas.? Consider short-term CT liver protocol or sonographic follow-up to ensure stability. ? ? ? Dictated by: Everette Astorga M.D. on 08/09/2021 at 19:24 ? ? Approved by: Everette sAtorga M.D. on 08/09/2021 at 19:35 ? Discharge Plan Departure Patient Disposition: Home Clinical Impression: Community acquired pneumonia Activity Restrictions/Additional Instructions: See family doctor this week for recheck. Continue antibiotic tomorrow. Return if worsening questions or concerns or increased pain or any trouble breathing. Prescriptions: New azithromycin [Zithromax] 250 mg tablet 250 mg PO DAILY 4 Days 0RF Rx Instructions: start on day 2 of therapy No Action losartan 100 mg tablet 100 mg PO DAILY Qty: 90 1RF clonidine HCl 0.1 mg tablet See Rx Instructions .ROUTE .COMPLEX Qty: 45 2RF Rx Instructions: 0.5 tablet QAM and 1 Tablet QPM ibuprofen 200 mg Tablet 400 mg PO Q8H PRN (Reason: Pain (Scale Score 1-3)) 0RF diazepam [Valium] 5 mg tablet See Rx Instructions PO BEDTIME PRN (Reason: temporary insomnia/travel) Qty: 10 0RF Rx Instructions: Take 1 to 2 tabs PO only if needed at bedtime PRN; allopurinol 300 mg tablet 300 mg PO DAILY 0RF Referrals: Nury Lainez PA-C [Primary Care Provider] -
[2021-08-09 15:19] LABS: Alanine Aminotransferase 62 IU/L (<50); Albumin Globulin Ratio 1.1 (1.0-2.8); Alkaline Phosphatase 118 U/L (38-126); Aspartate Aminotransferase 57 IU/L (17-59); BUN Creatinine Ratio 17.2 (6-22); Bilirubin Total 1.5 mg/dL (0.2-1.3); Blood Urea Nitrogen 21 mg/dL (9-20); Calcium 11.6 mg/dL (8.4-10.2); Carbon Dioxide 26 mmol/L (22-32); Chloride 107 mmol/L (98-107); Estimated Glomerular Filt Rate 57.4 mL/min (>60); Globulin 3.5 g/dL (1.7-4.1); Glucose 112 mg/dL (80-110); HEMOLYSIS 15 (0-50); Lipase 47 U/L (23-300); Potassium 4.3 mmol/L (3.4-5.1); Sodium 141 mmol/L (137-145); Total Protein 7.5 g/dL (6.3-8.2)
[2021-08-09 15:26] LABS: COVID19 - ADMIT (NP swab/PCR) Negative (Negative)
[2021-08-09] MEDS: SODIUM CHLORIDE 0.9% 1,000 ML 1000 ML IV (15:48)
[2021-08-09] MEDS: IBUPROFEN 400 MG TABLET 800 MG PO (15:48)
--- NOTE | 2021-08-09 16:03 | DI.CT.S_ITS ---
PROCEDURE: CT ABDOMEN PELVIS W CON INDICATIONS: Right-sided flank pain with fever and leukocytosis TECHNIQUE: After the administration of IV contrast, axial sections were acquired from the lung bases to the pubic symphysis. Coronal and sagittal reformats were performed. For radiation dose reduction, the following was used: automated exposure control, adjustment of mA and/or kV according to patient size. COMPARISON: None. FINDINGS: Image quality: Excellent. Lung bases: There is a small right pleural effusion. There are confluent ground-glass opacities with mild consolidation inferiorly in the right lower lobe. Linear areas of atelectasis are also demonstrated in the lung bases. Heart: Heart is normal in size. ABDOMEN: Liver: Anteriorly within segment 2 of the left hepatic lobe, there is a peripherally enhancing lobulated mass measuring approximately 4.9 x 4.3 cm. There is das discontinuous nodular peripheral enhancement. Posteriorly within segment 7 of the right hepatic lobe, there is also an oval heterogeneous hypoattenuating mass lesion measuring approximately 2.7 x 2.5 cm with heterogeneous internal enhancement with areas of peripheral nodularity also noted. The findings are suggestive of cavernous hemangiomas but are incompletely characterized on the current study. Gallbladder: Within normal limits without gallstones. Biliary ducts: No biliary ductal dilatation. Pancreas: Unremarkable. Spleen: Normal in size. Adrenal Glands: No adrenal nodules. Kidneys and Ureters: No hydronephrosis. There is asymmetric moderate atrophy of the right kidney. A small nonobstructing 0.2 cm stone is present within the right kidney. Stomach and Bowel: Stomach, small bowel loops, and colon are normal in caliber and wall thickness. The appendix is normal in appearance. Peritoneum: No abnormal intraperitoneal fluid. No free air. Ventral Wall: No hernia. Abdominal Nodes: No retroperitoneal or mesenteric adenopathy by size criteria. Vessels: Aorta and inferior vena cava are normal in size. PELVIS: Pelvic Organs: Unremarkable. Bladder: Unremarkable. Pelvic Nodes: No enlarged lymph nodes. Miscellaneous: No inguinal hernias are seen. Bones: Visualized osseous structures demonstrate no suspicious focal lesions. IMPRESSION: 1. Confluent ground-glass opacities with consolidation inferiorly in the right lower lobe consistent with pneumonia. There is an associated small right parapneumonic effusion. Consider short-term follow-up to demonstrate resolution if clinically indicated. 2. Demonstration of 2 hepatic mass lesions with imaging findings suggestive of cavernous hemangiomas but which are incompletely characterized on the current study. The differential includes neoplasms as well as possible fluid collections such as abscesses. Recommend a follow-up liver protocol MRI or CT for further evaluation. 3. Right nephrolithiasis without obstructive uropathy. Dictated by: Clinton Brady M.D. on 08/09/2021 at 16:44 Approved by: Clinton Brady M.D. on 08/09/2021 at 16:52
[2021-08-09] MEDS: diphenhydrAMINE 50 MG/ML VIAL 25 MG IV (16:21)
[2021-08-09] MEDS: methylPREDNISolone 125 MG/2 ML VIAL IV (16:21)
--- NOTE | 2021-08-09 17:08 | DI.MRI.S_ITS ---
PROCEDURE: MR ABDOMEN WO/W CON INDICATIONS: would like liver protocol MRI to evaluate for abscesses TECHNIQUE: Coronal HASTE, axial 2D FLASH in- and [id number]; axial breath-hold T2 FSE. Dynamic axial VIBE during the administration of contrast; post-contrast coronal VIBE or 2D FLASH with fat saturation from the hepatic dome to the iliac crests. Optional diffusion weighted imaging and ADC may be performed. COMPARISON: [facility], CT, CT ABDOMEN PELVIS W CON, 08/09/2021, 16:38. FINDINGS: Image quality: Some images are degraded by motion artifact. Lung bases: Small right pleural effusion. Heart size is normal. Solid organs: Liver: Redemonstrated masses in segment 2, measuring approximately 5.5 x 3.5 cm, and segment 7, measuring 2.5 x 2.5 cm , which demonstrate peripheral nodular enhancement and exhibit restricted diffusion. Gallbladder demonstrates no acute abnormality. Biliary system is non dilated. Pancreas is normal in morphology. Spleen is normal in size and enhancement. No adrenal nodules. The kidneys demonstrate symmetric enhancement without hydronephrosis. The right kidney is atrophic. Parapelvic T2 hyperintense lesions in the left kidney, likely representing cysts. Nodes and vessels: No retroperitoneal or mesenteric adenopathy by size criteria. Aorta and inferior vena cava are normal in size. Bowel and peritoneum: Unenhanced bowel loops are normal in caliber. No free fluid. Bones: Bone marrow is normal in overall signal. IMPRESSION: 1. Redemonstrated hepatic masses as detailed above, favored to represent hemangiomas. Consider short-term CT liver protocol or sonographic follow-up to ensure stability. Dictated by: Everette Astorga M.D. on 08/09/2021 at 19:24 Approved by: Everette Astorga M.D. on 08/09/2021 at 19:35
[2021-08-09] MEDS: AZITHROMYCIN 500 MG in DEXTROSE 5% IN WATER 250 ML IV (17:44)
== END 2021-08-09 20:11 | disposition home or self-care (01) ==
PROVIDERS: Emergency Medicine; Emergency Provider Emergency Medicine; PCP Physician Assistant
DX: J18.9 Pneumonia, unspecified organism (principal); M54.50 Low back pain, unspecified; R03.0 Elevated blood-pressure reading, without diagnosis of hypertension; Z20.822 Contact with and (suspected) exposure to COVID-19
CPT/HCPCS: 36415; 71045; 74177; 74183; 80053; 81003; 83605; 83690; 84145; 85025; 87040; 87635; 93005; 93010; 96361; 96365; 96375; 99284; 99285; C9803; A9579; J1200; J2930; Q9967

== ENCOUNTER 2022-01-23 21:02 | Emergency (ER) | payer BC, SELFPAY ==
[2022-01-23] VITALS (15 sets, daily range): BP systolic 130–201; BP diastolic 69–87; PULSE 32–60; RESP 15–24; TEMP 37; O2SAT 96–99
--- NOTE | 2022-01-23 21:08 | DI.RAD.S_ITS ---
PROCEDURE: XR CHEST 1V INDICATIONS: chest pain TECHNIQUE: One view of the chest was acquired. COMPARISON: [facility], CR, XR CHEST 1V, 08/09/2021, 14:56. FINDINGS: Surgical changes and devices: None. Lungs and pleura: Lungs are clear. No pleural effusions or pneumothorax. Mediastinum: Mediastinal contours appear normal. Heart size is normal. Bones and chest wall: No suspicious bony lesions. Overlying soft tissues appear unremarkable. IMPRESSION: No acute cardiopulmonary findings Approved by: Michael Caludio M.D. on 01/23/2022 at 21:02
--- NOTE | 2022-01-23 21:34 | ED.CHESTPAIN ---
HPI - Chest Pain General Chief Complaint: Chest Pain Stated Complaint: Lt arm/chest pain, high BP Time Seen by Provider: 01/23/22 21:25 Source: patient Mode of arrival: Ambulatory Limitations: no limitations History of Present Illness HPI narrative: 81-year-old male with a history of high blood pressure who is here for evaluation of left-sided chest discomfort and left arm discomfort. He states that a couple hours prior to arrival here in the emergency department he was at a libertarian with some friends. He had a fairly sudden onset of left-sided chest discomfort that did seem to involve his left arm. Potentially worse with movement of the area but is not 100% convinced of this. He describes it as a dull sensation. No problems breathing. No palpitations. No vomiting. No skin changes. No fevers. He has never had symptoms like this in the past. Did take his blood pressure which was elevated. He contacted the doctor on-call where he lives who advised that he come in to be evaluated. He contacted EMS. They arrived and evaluated him. He was told that it was probably musculoskeletal but advised that he come to the emergency department. He was given an aspirin. He did take a dose of his clonidine. Upon arrival he states that his symptoms have improved but are not completely resolved. Related Data Home Medications Medication Instructions Recorded Confirmed ibuprofen 200 mg tablet 400 mg PO Q8H PRN 08/16/19 09/07/21 Previous Rx's Medication Instructions Recorded losartan 100 mg tablet 100 mg PO DAILY #90 tab 04/21/21 acetazolamide 125 mg tablet 125 mg PO BID #30 tab 09/07/21 diazepam 5 mg tablet (Valium) See Rx Instructions PO BEDTIME PRN 09/07/21 #10 tab clonidine HCl 0.1 mg tablet See Rx Instructions .ROUTE 11/26/21 .COMPLEX #45 tab Allergies Allergy/AdvReac Type Severity Reaction Status Date / Time shellfish derived Allergy Verified 09/07/21 11:49 Review of Systems Constitutional Constitutional: Denies fever(s) and Denies headache(s) ENT Ears, Nose, Mouth, and Throat: Denies headache(s) Cardiovascular Cardiovascular: Reports system reviewed and no additional complaints, except as documented Respiratory Respiratory: Reports system reviewed and no additional complaints, except as documented Gastrointestinal Gastrointestinal: Reports system reviewed and no additional complaints, except as documented Musculoskeletal Musculoskeletal: Reports system reviewed and no additional complaints, except as documented Integumentary/Breasts Skin/Breast: Reports system reviewed and no additional complaints, except as documented Neurologic Neurologic: Denies headache(s) Hematologic/Lymphatic On Anticoagulants: No Patient History Medical History Anxiety disorder Enlarged prostate Hypertension Liver mass Nephrolithiasis Neuropathy of both feet Social History household members: spouse Smoking Status: Never smoker Smoking Status: Never smoker alcohol intake frequency: a few times a month Substance Use Type: marijuana Exam Initial Vital Signs Initial Vital Signs: Vital Signs Pulse Rate 59 L 01/23/22 21:07 Blood Pressure 201/87 H 01/23/22 21:07 Pulse Oximetry 99 01/23/22 21:07 Const General: cooperative and healthy appearing HENMT Head: normal to inspection Resp Effort & Inspection: normal respiratory effort Auscultation: clear to auscultation bilaterally Cardio Rate: regular rate Rhythm: regular rhythm GI Inspection: normal to inspection Skin General: no rashes or lesions noted Neuro General: patient alert, patient awake and moves all extremities Cognition: normal cognition Speech: speech normal Extrem General: normal to inspection, full ROM and No edema Psych Appearance: grossly normal and well kempt Scores HEART Score Heart Score history: Slightly Suspicious Heart Score EKG: Normal Heart Score Age: > or = 65 years old Heart Score risk factors: 1-2 risk factors Heart Score troponin: < or = to normal limit Heart Score Total: 3 Course Orders Ordered: ED Orders 01/23/22 21:08 XR chest 1V Stat EKG-12 Lead Stat 01/23/22 21:22 Complete Blood Count AUTO DIFF Stat Comprehensive Metabolic Panel Stat Lipase Stat Magnesium Stat Troponin & CK Cardiac Panel Stat 01/23/22 23:30 Troponin I Stat 01/24/22 00:42 Partial Thromboplastin Time Stat Prothrombin Time INR Stat 01/24/22 01:21 Partial Thromboplastin Time Q6H Troponin & CK Cardiac Panel Stat 01/24/22 01:25 COVID19 -Nasal RAPID/Pre-Proc Stat 01/24/22 07:00 Partial Thromboplastin Time Q6H 01/24/22 13:00 Partial Thromboplastin Time Q6H 01/24/22 19:00 Partial Thromboplastin Time Q6H Heparin Sodium/Dextrose (Heparin Drip) 25,000 unit in 500 mls @ 17.962 mls/hr IV CONT ROSEY; Protocol Last Admin: 01/24/22 01:29 Dose: 12 units/kg/hr, 17.962 mls/hr Documented by: PENNY Nitroglycerin (Nitroglycerin 0.4 Mg Sl Tab) 0.4 mg SL [id number] PRN PRN Reason: Chest Pain Last Admin: 01/23/22 21:49 Dose: 0.4 mg Documented by: Admin: 01/23/22 21:41 Dose: 0.4 mg Documented by: BONNIE Discontinued Medications Heparin Sodium (Porcine) (Heparin 5,000 Unit/Ml Vial) 4,000 unit IV NOW ONE Stop: 01/24/22 00:49 Last Admin: 01/24/22 01:29 Dose: 4,000 unit Documented by: PENNY Vital Signs Vital signs: Vital Signs - 8 hr 01/23/22 21:07 01/23/22 21:08 01/23/22 21:28 Temperature 98.6 F Pulse Rate 59 L 60 44 L Respiratory Rate 20 Blood Pressure 201/87 H 201/87 H 176/80 H Pulse Oximetry 99 99 01/23/22 21:30 01/23/22 21:41 01/23/22 21:49 Temperature Pulse Rate 54 L 44 L 50 L Respiratory Rate 22 22 Blood Pressure 188/78 H 188/78 H 149/70 H Pulse Oximetry 97 01/23/22 21:58 01/23/22 22:00 01/23/22 22:30 Temperature Pulse Rate 52 L 46 L 46 L Respiratory Rate 23 20 22 Blood Pressure 132/72 130/69 Pulse Oximetry 96 96 98 01/23/22 22:31 01/23/22 23:00 01/23/22 23:01 Temperature Pulse Rate 43 L 38 L 42 L Respiratory Rate 23 15 17 Blood Pressure 148/72 H 168/72 H Pulse Oximetry 98 99 98 01/23/22 23:20 01/23/22 23:30 01/23/22 23:31 Temperature Pulse Rate 32 L 41 L 40 L Respiratory Rate 19 15 Blood Pressure 162/76 H Pulse Oximetry 99 99 01/24/22 00:00 01/24/22 00:01 01/24/22 00:30 Temperature Pulse Rate 37 L 39 L 36 L Respiratory Rate 21 20 22 Blood Pressure 159/67 H Pulse Oximetry 99 99 100 01/24/22 00:31 01/24/22 01:00 01/24/22 01:35 Temperature Pulse Rate 37 L 36 L 46 L Respiratory Rate 23 17 Blood Pressure 141/62 H Pulse Oximetry 100 99 99 01/24/22 02:00 01/24/22 02:04 Temperature Pulse Rate 36 L Respiratory Rate 17 14 Blood Pressure 179/77 H Pulse Oximetry 96 98 MDM - Chest Pain Lab Data Attestation: I reviewed the patient's lab results. Result diagrams: 01/23/22 21:22 01/23/22 21:22 Labs: Lab Results 01/23/22 01/23/22 01/23/22 Range/Units 21:22 21:22 21:22 WBC 6.7 (4.5-11.0) X10^3/uL RBC 4.50 (4.5-5.9) X10^6/uL Hgb 14.6 (13.5-17.5) g/dL Hct 42.6 (41-53) % MCV 94.5 (80-100) fL MCH 32.5 (26-34) PG MCHC 34.4 (30-36) % RDW 14.4 (11.6-14.8) % Plt Count 147 L (150-400) X10^3/uL Neut % (Auto) 67.9 (50-75) % Lymph % (Auto) 23.6 L (25-40) % [place] % (Auto) 7.0 (3-14) % Eos % (Auto) 0.9 L (2-4) % Baso % (Auto) 0.6 (0-2) % Neut # (Auto) 4600 (3138-6975) /uL Lymph # (Auto) 1600 (2145-1460) /uL [place] # (Auto) 500 (0-900) /uL Eos # (Auto) 100 (0-450) /uL Baso # (Auto) 0 (0-100) /uL PT 10.8 (10.1-12.7) SECONDS INR 1.0 (0.9-1.3) APTT 29 (26.4-36.2) SECONDS Sodium 140 (137-145) mmol/L Potassium 4.1 (3.4-5.1) mmol/L Chloride 106 (98-107) mmol/L Carbon Dioxide 26 (22-32) mmol/L BUN 22 H (9-20) mg/dL Creatinine 0.90 (0.66-1.25) mg/dL Estimated GFR > 60 (>60) mL/min BUN/Creatinine Ratio 24.4 H (6-22) Glucose 103 (80-110) mg/dL Calcium 10.0 (8.4-10.2) mg/dL Magnesium 2.2 (1.6-2.3) mg/dL Total Bilirubin 1.0 (0.2-1.3) mg/dL AST 31 (17-59) IU/L ALT 23 (<50) IU/L Alkaline Phosphatase 68 (38-126) U/L Total Creatine Kinase 114 (55-170) U/L CK-MB (CK-2) 2.40 H (<2.37) ng/mL CK-MB (CK-2) Rel Index 2.1 (1.5-5.0) % Troponin I 0.018 (0.01-0.034) ng/mL Total Protein 7.2 (6.3-8.2) g/dL Albumin 4.2 (3.5-5.0) g/dL Globulin 3.0 (1.7-4.1) g/dL Albumin/Globulin Ratio 1.4 (1.0-2.8) Lipase 156 (23-300) U/L SARS-CoV-2 (PCR) (Negative) 01/23/22 01/24/22 01/24/22 Range/Units 23:30 01:21 01:21 WBC (4.5-11.0) X10^3/uL RBC (4.5-5.9) X10^6/uL Hgb (13.5-17.5) g/dL Hct (41-53) % MCV (80-100) fL MCH (26-34) PG MCHC (30-36) % RDW (11.6-14.8) % Plt Count (150-400) X10^3/uL Neut % (Auto) (50-75) % Lymph % (Auto) (25-40) % [place] % (Auto) (3-14) % Eos % (Auto) (2-4) % Baso % (Auto) (0-2) % Neut # (Auto) (0197-4559) /uL Lymph # (Auto) (7566-1912) /uL [place] # (Auto) (0-900) /uL Eos # (Auto) (0-450) /uL Baso # (Auto) (0-100) /uL PT (10.1-12.7) SECONDS INR (0.9-1.3) APTT 29 (26.4-36.2) SECONDS Sodium (137-145) mmol/L Potassium (3.4-5.1) mmol/L Chloride (98-107) mmol/L Carbon Dioxide (22-32) mmol/L BUN (9-20) mg/dL Creatinine (0.66-1.25) mg/dL Estimated GFR (>60) mL/min BUN/Creatinine Ratio (6-22) Glucose (80-110) mg/dL Calcium (8.4-10.2) mg/dL Magnesium (1.6-2.3) mg/dL Total Bilirubin (0.2-1.3) mg/dL AST (17-59) IU/L ALT (<50) IU/L Alkaline Phosphatase (38-126) U/L Total Creatine Kinase 100 (55-170) U/L CK-MB (CK-2) TNP (<2.37) ng/mL CK-MB (CK-2) Rel Index TNP (1.5-5.0) % Troponin I 0.046 H 0.055 H (0.01-0.034) ng/mL Total Protein (6.3-8.2) g/dL Albumin (3.5-5.0) g/dL Globulin (1.7-4.1) g/dL Albumin/Globulin Ratio (1.0-2.8) Lipase (23-300) U/L SARS-CoV-2 (PCR) (Negative) 01/24/22 Range/Units 01:25 WBC (4.5-11.0) X10^3/uL RBC (4.5-5.9) X10^6/uL Hgb (13.5-17.5) g/dL Hct (41-53) % MCV (80-100) fL MCH (26-34) PG MCHC (30-36) % RDW (11.6-14.8) % Plt Count (150-400) X10^3/uL Neut % (Auto) (50-75) % Lymph % (Auto) (25-40) % [place] % (Auto) (3-14) % Eos % (Auto) (2-4) % Baso % (Auto) (0-2) % Neut # (Auto) (1474-3780) /uL Lymph # (Auto) (8513-9486) /uL [place] # (Auto) (0-900) /uL Eos # (Auto) (0-450) /uL Baso # (Auto) (0-100) /uL PT (10.1-12.7) SECONDS INR (0.9-1.3) APTT (26.4-36.2) SECONDS Sodium (137-145) mmol/L Potassium (3.4-5.1) mmol/L Chloride (98-107) mmol/L Carbon Dioxide (22-32) mmol/L BUN (9-20) mg/dL Creatinine (0.66-1.25) mg/dL Estimated GFR (>60) mL/min BUN/Creatinine Ratio (6-22) Glucose (80-110) mg/dL Calcium (8.4-10.2) mg/dL Magnesium (1.6-2.3) mg/dL Total Bilirubin (0.2-1.3) mg/dL AST (17-59) IU/L ALT (<50) IU/L Alkaline Phosphatase (38-126) U/L Total Creatine Kinase (55-170) U/L CK-MB (CK-2) (<2.37) ng/mL CK-MB (CK-2) Rel Index (1.5-5.0) % Troponin I (0.01-0.034) ng/mL Total Protein (6.3-8.2) g/dL Albumin (3.5-5.0) g/dL Globulin (1.7-4.1) g/dL Albumin/Globulin Ratio (1.0-2.8) Lipase (23-300) U/L SARS-CoV-2 (PCR) Negative (Negative) Imaging Data Chest x-ray: Radiologist's Impression: [address] [address] XRay Report Signed Patient: Chauncey Martinez MR#: [id number] : 1940 Acct:[id number] Age/Sex: 81 / M Date of Service: 01/23/22 Loc: ED Accession Number: [id number] ?? Procedure: XR chest 1V Ordering Provider: Martell Batista D.O. PROCEDURE:? XR CHEST 1V ? INDICATIONS:? chest pain ? TECHNIQUE:? One view of the chest was acquired.? ? COMPARISON:? [facility], , XR CHEST 1V, 08/09/2021, 14:56. ? FINDINGS:? ? Surgical changes and devices:? None.? ? Lungs and pleura:? Lungs are clear.? No pleural effusions or pneumothorax.? ? Mediastinum:? Mediastinal contours appear normal.? Heart size is normal.? ? Bones and chest wall:? No suspicious bony lesions.? Overlying soft tissues appear unremarkable.? ? IMPRESSION:? No acute cardiopulmonary findings ? ? ? Approved by: Michael Claudio M.D. on 01/23/2022 at 21:02? ECG Data Attestation: I personally reviewed and interpreted this ECG as follows: Interpretation: Sinus bradycardia Ventricular rate of 51 Normal axis Normal QRS Normal QTC No ST T wave changes Repeat EKG Sinus bradycardia Ventricular rate of 37 Normal QRS Normal QTC No ST T wave changes MDM Narrative Medical decision making narrative: Chest discomfort upon arrival improved from its onset a couple hours ago but not completely gone. He did take 4 baby aspirin prior to arrival. Here in the ER initially was hypertensive. This improved with nitro which minimally improved any of his discomfort. Chest x-ray is unremarkable. Initial troponin indeterminate. Repeat troponin above 99th percentile. Discussed the case with Dr. Felipe with cardiology at [facility] who recommended patient be transferred to facility with catheterization capability and Cardiology. [facility] on available to take the patient secondary to no bed availability. Cardiology recommended starting the patient on heparin. Third troponin continues to rise however still not above acute myocardial infarction threshold. Did discuss the case with with Internal Medicine at [facility] who accepts the patient in transfer. Patient is stable for transport. We did discuss the need for transfer and his labs and other findings in the patient expressed understanding and agreement. Discharge Plan Departure Patient Disposition: [facility] Clinical Impression: Hypertensive emergency, Chest pain Prescriptions: No Action losartan 100 mg tablet 100 mg PO DAILY Qty: 90 1RF clonidine HCl 0.1 mg tablet See Rx Instructions .ROUTE .COMPLEX Qty: 45 2RF Dose Instruction: TAKE (1/2) TABLET BY MOUTH EVERY MORNING AND TAKE ONE TABLET BY MOUTH EVERY EVENING Rx Instructions: TAKE (1/2) TABLET BY MOUTH EVERY MORNING AND TAKE ONE TABLET BY MOUTH EVERY EVENING ibuprofen 200 mg Tablet 400 mg PO Q8H PRN (Reason: Pain (Scale Score 1-3)) 0RF acetazolamide 125 mg tablet 125 mg PO BID Qty: 30 0RF Rx Instructions: Start 24 h before arrival; D/c 2-3 days after peak arrival diazepam [Valium] 5 mg tablet See Rx Instructions PO BEDTIME PRN (Reason: temporary insomnia/travel) Qty: 10 0RF Rx Instructions: Take 1 to 2 tabs PO only if needed at bedtime PRN; Referrals: Nury Lainez PA-C [Primary Care Provider] -
[2022-01-23 21:35] LABS: Add Manual Diff / Slide Review NO; Basophils Absolute Auto 0 /uL (0-100); Basophils Percent Auto 0.6 % (0-2); Eosinophils Absolute Auto 100 /uL (0-450); Eosinophils Percent Auto 0.9 % (2-4); Hematocrit 42.6 % (41-53); Hemoglobin 14.6 g/dL (13.5-17.5); Lymphocytes Absolute Auto 1600 /uL (1100-4500); Lymphocytes Percent Auto 23.6 % (25-40); Mean Corpuscular HGB Conc 34.4 % (30-36); Mean Corpuscular Hemoglobin 32.5 PG (26-34); Mean Corpuscular Volume 94.5 fL (80-100); Monocytes Absolute Auto 500 /uL (0-900); Neutrophils Absolute Auto 4600 /uL (1500-7000); Neutrophils Percent Auto 67.9 % (50-75); Platelet Count 147 X10^3/uL (150-400); Red Cell Distribution Width 14.4 % (11.6-14.8); White Blood Cell Count 6.7 X10^3/uL (4.5-11.0)
[2022-01-23 21:40] LABS: Alanine Aminotransferase 23 IU/L (<50); Albumin 4.2 g/dL (3.5-5.0); Albumin Globulin Ratio 1.4 (1.0-2.8); Alkaline Phosphatase 68 U/L (38-126); Aspartate Aminotransferase 31 IU/L (17-59); BUN Creatinine Ratio 24.4 (6-22); Blood Urea Nitrogen 22 mg/dL (9-20); Carbon Dioxide 26 mmol/L (22-32); Chloride 106 mmol/L (98-107); Creatine Kinase 114 U/L (55-170); Estimated Glomerular Filt Rate > 60 mL/min (>60); Glucose 103 mg/dL (80-110); Lipase 156 U/L (23-300); Magnesium 2.2 mg/dL (1.6-2.3); Potassium 4.1 mmol/L (3.4-5.1); Sodium 140 mmol/L (137-145); Total Protein 7.2 g/dL (6.3-8.2)
[2022-01-23] MEDS: NITROGLYCERIN 0.4 MG SL TAB SL ×2 (21:41→21:49)
[2022-01-23 21:51] LABS: Troponin I 0.018 ng/mL (0.01-0.034)
[2022-01-23 21:55] LABS: CKMB % Relative Index 2.1 % (1.5-5.0); HEMOLYSIS 21 (0-50)
[2022-01-24] VITALS (10 sets, daily range): BP systolic 141–179; BP diastolic 62–77; PULSE 35–46; RESP 14–23; O2SAT 96–100
[2022-01-24 00:04] LABS: Troponin I 0.046 ng/mL (0.01-0.034)
[2022-01-24 00:51] LABS: Prothrombin Time 10.8 SECONDS (10.1-12.7)
[2022-01-24 00:54] LABS: PTT Partial Thromboplastin Tim 29 SECONDS (26.4-36.2)
[2022-01-24] MEDS: HEPARIN 5,000 UNIT/ML VIAL 4000 UNIT IV (01:29)
[2022-01-24] MEDS: HEPARIN DRIP 25,000 UNIT/500 ML IV.SOLN 17.962 UNIT IV (01:29)
[2022-01-24 01:44] LABS: PTT Partial Thromboplastin Tim 29 SECONDS (26.4-36.2)
[2022-01-24 01:45] LABS: COVID19 -Nasal RAPID Negative (Negative)
[2022-01-24 01:47] LABS: Creatine Kinase 100 U/L (55-170)
[2022-01-24 02:00] LABS: Troponin I 0.055 ng/mL (0.01-0.034)
== END 2022-01-24 02:55 | disposition short-term general hospital (02) ==
PROVIDERS: Emergency Provider Emergency Medicine; PCP Physician Assistant
DX: I16.1 Hypertensive emergency (principal); R07.9 Chest pain, unspecified; Z20.822 Contact with and (suspected) exposure to COVID-19
CPT/HCPCS: 36415; 71045; 80053; 82550; 82553; 83690; 83735; 84484; 85025; 85610; 85730; 87635; 93005; 96365; 96366; 96375; 99284; C9803; J1644

== ENCOUNTER → 2022-03-30 15:33 | Outpatient (CLI) | payer BC, SELFPAY ==
[2022-03-30 20:36] LABS: Prostate Specific Antigen 0.683 ng/mL (0.10-4.00)
== END ==
PROVIDERS: PCP Physician Assistant; Visit Provider Urology
DX: C61 Malignant neoplasm of prostate (principal)
CPT/HCPCS: 84153

== ENCOUNTER → 2022-04-14 14:37 | Outpatient (CLI) | payer BC, SELFPAY ==
[2022-04-15 18:34] LABS: Glucose 95 mg/dL (80-110)
[2022-04-15 18:49] LABS: Free T4, Direct Thyroxine 1.24 ng/dL (0.78-2.19); T7 (Free Thyroxine Index) 2.66 (1.65-3.89); Triiodothryronine T3 Uptake 35.5 % (23.5-40.5)
[2022-04-15 19:19] LABS: Vitamin B12 364 pg/mL (239-931)
== END ==
PROVIDERS: PCP Physician Assistant; Visit Provider Podiatrist
DX: R20.0 Anesthesia of skin (principal); R20.2 Paresthesia of skin
CPT/HCPCS: 82607; 82947; 84436; 84439; 84479

== ENCOUNTER → 2022-05-10 11:37 | Outpatient (CLI) | payer BC, SELFPAY ==
--- NOTE | 2022-05-10 | DI.MRI.S_ITS ---
PROCEDURE: MR LUMBAR SPINE WO CON INDICATIONS: 81-year-old male with low back pain and right-sided radiculopathy TECHNIQUE: Noncontrast sagittal T1 spin echo and T2 fast echo, sagittal STIR, and T2 fast spin echo through the lumbar spine. In cases with scoliosis, additional coronal T2 fast spin echo may be performed. COMPARISON: None. FINDINGS: Image quality: Excellent. Alignment and Curvature: There is normal bony alignment. Bone Marrow: Multilevel degenerative endplate changes chronic. Edematous Modic type 1 degenerative changes noted at L4-5 Spinal Cord: Conus medullaris terminates at the L1 level. Visualized cord demonstrates normal signal and size. Paraspinous Soft Tissues: No paravertebral masses. T12-L1: Normal appearance. L1-L2: Disc height is preserved. Circumferential disc bulge results in mild central stenosis. No foraminal stenosis L2-L3: Disc space narrowing with circumferential disc bulge and ligamentum flavum laxity combines with hypertrophic facet joints results in moderate central stenosis. Moderate bilateral foraminal stenosis greater on the left. L3-L4: Disc space narrowing with hypertrophic facet joints and circumferential disc bulge combined result in moderate central stenosis with effacement of both lateral recesses. There is severe right and mild left foraminal stenosis. L4-L5: Disc space narrowing with circumferential disc bulge and hypertrophic facet joints. Moderate central stenosis and severe right foraminal stenosis. Mild left foraminal stenosis L5-S1: Disc space narrowing with circumferential disc bulge. No central stenosis. No foraminal stenosis. IMPRESSION: 1. Multilevel degenerative disc disease and arthropathy results in varying degrees of central and foraminal stenosis including severe right foraminal and moderate central stenosis at L3-4 and L4-5 Approved by: Michael Claudio M.D. on 05/10/2022 at 14:44
== END ==
PROVIDERS: PCP Physician Assistant; Referring Provider Physical Medicine & Rehabilitation; Visit Provider Physical Medicine & Rehabilitation
DX: M54.16 Radiculopathy, lumbar region (principal); M51.36 Other intervertebral disc degeneration, lumbar region; M48.061 Spinal stenosis, lumbar region without neurogenic claudication
CPT/HCPCS: 72148

== ENCOUNTER → 2023-01-03 09:04 | Outpatient (CLI) | payer BC, SELFPAY ==
[2023-01-03 20:07] LABS: Alanine Aminotransferase 35 IU/L (<50); Albumin 3.9 g/dL (3.5-5.0); Albumin Globulin Ratio 1.4 (1.0-2.8); Alkaline Phosphatase 74 U/L (38-126); Aspartate Aminotransferase 31 IU/L (17-59); BUN Creatinine Ratio 21.8 (6-22); Bilirubin Total 1.7 mg/dL (0.2-1.3); Blood Urea Nitrogen 22 mg/dL (9-20); Calcium 10.6 mg/dL (8.4-10.2); Carbon Dioxide 30 mmol/L (22-32); Chloride 105 mmol/L (98-107); Cholesterol 142 mg/dL (140-199); Estimated Glomerular Filt Rate > 60 mL/min (>60); Globulin 2.8 g/dL (1.7-4.1); Glucose 101 mg/dL (80-110); HDL Cholesterol 49 mg/dL (40-60); HEMOLYSIS < 15 (0-50); LDL Cholesterol Calculated 75 mg/dL (<100); Potassium 4.6 mmol/L (3.4-5.1); Sodium 139 mmol/L (137-145); Total Protein 6.7 g/dL (6.3-8.2); Triglycerides 88 mg/dL (35-150)
[2023-01-03 20:18] LABS: LDL Cholesterol Direct 66 mg/dL (<100)
== END ==
PROVIDERS: PCP Physician Assistant; Visit Provider Nurse Practitioner
DX: I21.4 Non-ST elevation (NSTEMI) myocardial infarction (principal)
CPT/HCPCS: 80053; 80061; 83721